=== PATIENT | male | born 1955 | race Two or more races ===

== ENCOUNTER 2020-11-20 09:20 | Inpatient (IN) | payer MEDICARE, OTHER ==
[2020-11-20] VITALS (21 sets, daily range): BP systolic 112–145; BP diastolic 47–67
[~2020-11-20] VITALS: Ht 167.6 cm; Wt 64.0 kg
--- NOTE | 2020-11-20 09:27 | NUR ---
BIB ra frm home c/o weakness and hyperglycemia. bs >400. On room air, breathing evenly and unlabored. Connected to the monitor and pulse ox. kept comfortable, will continue to monitor accordingly.
--- NOTE | 2020-11-20 09:28 | NUR ---
IV access initiated, blood drawned and sent to lab.
--- NOTE | 2020-11-20 09:28 | NUR ---
family contact number [phone]
[2020-11-20 09:40] LABS: EOSINOPHILS % (AUTO) 0.1 % (0.0-6.0); MONOCYTES # (AUTO) 0.4 /CMM (0.1-1.30)
[2020-11-20 09:45] LABS: BASOPHILS # (AUTO) 0.1 /CMM (0.0-0.2); BASOPHILS % (AUTO) 0.8 % (0.0-2.0)
[2020-11-20 09:57] LABS: HEMATOCRIT 40 % (39-51); HEMOGLOBIN 12.9 g/dL (13.5-17.5); LYMPHOCYTES # (AUTO) 0.6 /CMM (0.8-4.8); LYMPHOCYTES % (AUTO) 5.8 % (20.0-44.0); MEAN CORPUSCULAR HGB CONC 32 g/dl (31.0-36.0); MEAN CORPUSCULAR VOLUME 92 fL (80-96); MONOCYTES % (AUTO) 3.8 % (2.0-12.0); NEUTROPHILS # (AUTO) 9.3 /CMM (1.8-8.9); NEUTROPHILS % (AUTO) 89.5 % (43.0-81.0); PLATELET COUNT (AUTO) 270 /CMM (150-450); RED BLOOD CELL COUNT(AUTO) 4.38 MIL/uL (4.5-6.0); WHITE BLOOD COUNT (AUTO) 10.4 K/uL (4.3-11.0)
[2020-11-20 10:06] LABS: THYROID STIMULATING HORMONE 2.763 uIU/mL (0.358-3.74)
[2020-11-20 10:21] LABS: CALCIUM, SERUM 9.4 mg/dL (8.5-10.1); CHLORIDE 99 mmol/L (98-107); CREATININE 1.9 mg/dL (0.6-1.3); POTASSIUM 5.5 mmol/L (3.5-5.1); SODIUM SERUM 134 mmol/L (136-145); UREA NITROGEN, BLOOD 36 mg/dL (7-18)
[2020-11-20 10:30] LABS: CARBON DIOXIDE 7 mmol/L (21-32); GLUCOSE 491 mg/dL (74-106)
[2020-11-20 10:46] LABS: BILIRUBIN,TOTAL 0.5 mg/dL (0.2-1.0)
[2020-11-20 10:47] LABS: ALANINE AMINOTRANSFERASE 25 U/L (12-78); ALBUMIN 3.5 g/dL (3.4-5.0); ALKALINE PHOSPHATASE 112 U/L (46-116); ASPARTATE AMINOTRANSFERASE 13 U/L (15-37); B-TYPE NATRIURETIC PEPTIDE 429 PG/ML (0-125); BILIRUBIN,DIRECT 0.1 mg/dL (0.0-0.2); TOTAL PROTEIN, SERUM 8.4 g/dL (6.4-8.2)
[2020-11-20] MEDS ORDERED: AMLO10TA4 PO (10:59)
[2020-11-20] MEDS ORDERED: LOSA50TA39 PO (10:59)
[2020-11-20] MEDS ORDERED: GLIP5TAB13 PO (10:59)
[2020-11-20] MEDS ORDERED: METO25TA20 PO (10:59)
[2020-11-20] MEDS ORDERED: METF-440 PO (10:59)
[2020-11-20] MEDS ORDERED: LINA5TAB PO (10:59)
[2020-11-20] MEDS ORDERED: IV NS 0.9% 1,000 ML IV PRN ×2 (11:00→11:30)
[2020-11-20] MEDS ORDERED: INSULIN REGULAR, HUMAN 100 UNITS in IV NS 0.9% 100 ML IV PRN (11:00)
[2020-11-20 11:08] LABS: CALCIUM, SERUM 9.1 mg/dL (8.5-10.1); CREATININE 1.9 mg/dL (0.6-1.3); MAGNESIUM 2.6 mg/dL (1.8-2.4); PHOSPHORUS 4.6 mg/dL (2.5-4.9); POTASSIUM 5.9 mmol/L (3.5-5.1)
--- NOTE | 2020-11-20 11:22 | NUR ---
report given to Jc STUBBS for vera
[2020-11-20] MEDS ORDERED: MAG HYDROX/AL HYDROX/SIMETH 30 ML UDC PO PRN (11:30)
[2020-11-20] MEDS ORDERED: ACETAMINOPHEN 325 MG TABLET PO PRN (11:30)
[2020-11-20] MEDS ORDERED: MAGNESIUM HYDROXIDE 30 ML UDC PO PRN (11:30)
[2020-11-20] MEDS ORDERED: ONDANSETRON HCL/PF 4 MG/2 ML VIAL IVP PRN (11:30)
[2020-11-20] MEDS ORDERED: TEMAZEPAM 15 MG CAPSULE PO PRN (11:30)
[2020-11-20] MEDS ORDERED: MORPHINE SULFATE INJ 2 MG/ML DISP.SYRIN IV PRN (11:30)
[2020-11-20] MEDS ORDERED: Z GUARD REMEDY 2 OZ OINT TP PRN (11:30)
[2020-11-20] MEDS ORDERED: HYDROCODONE/APAP 5/325MG TABLET PO PRN (11:30)
[2020-11-20] MEDS ORDERED: INSULIN REGULAR, HUMAN 100 UNIT in IV NS 0.9% 99 ML IV PRN (11:30)
--- NOTE | 2020-11-20 12:10 | NUR ---
ADMITTING NOTES RECEIVED A PATIENT FROM [facility], A/O X4,ABLETO MAKE NEEDS KNOWN, ON RA SATING @100%, IV ACCESS ON RAC#18 WITH INSULIN DRIP @6.852 UNITS/HR AND NS RUNNING @ 125 ML/HR, PATENT AND INTACT, WILL CHECK FOR ADMITTING ORDERS. SKIN ISSUES NOTED ON BLE, WILL TAKE PICTURES AND FILE ON CHART, SAFETY MEASURES INITIATED, BED PLACED IN LOWEST LOCKED POSITION WITH SIDE RAILS UP X2, CALL LIGHT PLACED WITHIN EASY REACH, WILL CONTINUE TO MONITOR.
--- NOTE | 2020-11-20 12:18 | NUR ---
wheeled patient via gurney accompanied by RN and emt in no distress. RN assigned at bedside to assume care.
[2020-11-20] MEDS: PANTOPRAZOLE 40 MG VIAL IV SCH (13:04)
[2020-11-20 13:21] LABS: CALCIUM, SERUM 8.8 mg/dL (8.5-10.1); CREATININE 1.9 mg/dL (0.6-1.3); MAGNESIUM 2.5 mg/dL (1.8-2.4); PHOSPHORUS 3.3 mg/dL (2.5-4.9)
[2020-11-20] MEDS: BLOOD SUGAR DIAGNOSTIC 1 EACH STRIP IN SCH ×10 (14:05→23:06)
[2020-11-20 16:35] LABS: CALCIUM, SERUM 8.4 mg/dL (8.5-10.1); CREATININE 1.6 mg/dL (0.6-1.3); POTASSIUM 4.5 mmol/L (3.5-5.1)
[2020-11-20] MEDS: METOPROLOL TARTRATE 25 MG TABLET PO SCH (17:01)
[2020-11-20] MEDS: Potassium Chloride 40 MEQ in IV D5/0.45 NACL 1,000 ML IV PRN ×2 (17:04→22:37)
--- NOTE | 2020-11-20 18:41 | NUR ---
LOOM SETTER NOTES PATIENT IN BED RESTING COMFORTABLY IN MODERATE HIGH BACK REST, A/O X4, ON RA, TOLERATING WELL WITH NO SIGNS OF DISTRESS NOTED THROUGHOUT THE SHIFT, IV ACCESS ON RAC#18, ON INSULIN DRIP@ 1 UNIT/HR TITRATED PER PROTOCOL, D5 1/2 NS WITH 40 MEQ OF POTASSIUM RUNNING @ 200 ML/HR, PATENT AND INTACT. SAFETY MEASURES STILL IN PLACE, WILL ENDORSE TO MUSHROOM GROWER NURSE FOR CONTINUITY OF CARE.
--- NOTE | 2020-11-20 19:30 | NUR ---
RN NOTES RECEIVED PATIETN ASLEEP ON BED. BREATHING EVEN AND UNLABORED. PATIENT IS AOX4 ABLE TO MAKE KNOWN NEEDS. DENIES PAIN AT THIS TIME. SR ON MONITOR. ON ROOM AIR. PATIENT IS FULL CODE DIAGNOSED WITH DKA ON INSULIN DRIP TITRATED PROTOCOL ORDER. IV SITE ON RAC G 18 IRUNNING WITH INSULIN DRIP @ 1 U/H AND D5 1/2 W/ 40 MEQ KCL @ 200 ML/HR INTACT AND PATENT. KEPT PT CLEAN AND COMFORTABLE IN BED. INSTRUCTED TO USE KERMIT LIGHT FOR ASSISTANCE EVEN HE FEELS LIKE HE CAN DO THINGS ON HIS OWN. WILL CLOSELY MONITOR BS, BNP AND THE PATIENT STATUS.
--- NOTE | 2020-11-20 20:20 | NUR ---
RN NOTES PATIENT ATE DINNER 100% CONTINUE ON CLEAR LIQUID DIET. EDUCATE PATIENT REGARDING DIET ORDER. VERBALIZED UNDERSTANDING.
[2020-11-20] MEDS: HEPARIN SODIUM, PORCINE 5000 UNITS/1 ML VIAL SQ SCH (20:23)
[2020-11-20 22:27] LABS: BILIRUBIN,URINE SMALL (NEGATIVE); COLOR,URINE YELLOW (YELLOW); LEUKOCYTE ESTERASE ,URINE NEGATIVE (NEGATIVE); NITRITE, URINE NEGATIVE (NEGATIVE); PH,URINE 5.5 (5.0-8.0); PROTEIN,URINE 30 mg/dl (NEGATIVE); UGLUCOSE 500 MG/DL mg/dL (NEGATIVE); UROBILINOGEN,URINE 0.2 EU/dL (0.2)
[2020-11-20 22:29] LABS: CALCIUM, SERUM 7.8 mg/dL (8.5-10.1); CREATININE 1.6 mg/dL (0.6-1.3); POTASSIUM 4.2 mmol/L (3.5-5.1)
[2020-11-20 22:36] LABS: CREATININE, URINE 30.3 MG/DL (30.0-125.0); URINE TOTAL PROTEIN 63.3 mg/dL (0-11.9)
[2020-11-20 22:38] LABS: BACTERIA,URINE Few /HPF (None Seen); MUCUS,URINE Few /LPF (None Seen); SQUAMOUS EPITHELIAL CELL,UR Few /HPF (None Seen); URINE AMORPHOUS URATE Few /HPF (None Seen); YEAST,URINE Few /HPF (None Seen)
[2020-11-20 23:41] LABS: EOSINOPHIL,URINE None Seen
[2020-11-21] VITALS (33 sets, daily range): BP systolic 110–145; BP diastolic 30–78
[2020-11-21] MEDS: BLOOD SUGAR DIAGNOSTIC 1 EACH STRIP IN SCH ×12 (00:13→21:08)
[2020-11-21 02:14] LABS: CALCIUM, SERUM 7.7 mg/dL (8.5-10.1); CREATININE 1.5 mg/dL (0.6-1.3); POTASSIUM 4.2 mmol/L (3.5-5.1)
[2020-11-21] MEDS: Potassium Chloride 40 MEQ in IV D5/0.45 NACL 1,000 ML IV PRN (04:20)
[2020-11-21 06:32] LABS: BASOPHILS # (AUTO) 0.1 /CMM (0.0-0.2); BASOPHILS % (AUTO) 0.8 % (0.0-2.0); HEMATOCRIT 35 % (39-51); HEMOGLOBIN 11.6 g/dL (13.5-17.5); LYMPHOCYTES # (AUTO) 1.1 /CMM (0.8-4.8); LYMPHOCYTES % (AUTO) 13.7 % (20.0-44.0); MEAN CORPUSCULAR HGB CONC 33 g/dl (31.0-36.0); MEAN CORPUSCULAR VOLUME 88 fL (80-96); MONOCYTES # (AUTO) 0.5 /CMM (0.1-1.30); MONOCYTES % (AUTO) 6.7 % (2.0-12.0); NEUTROPHILS % (AUTO) 76.8 % (43.0-81.0); PLATELET COUNT (AUTO) 206 /CMM (150-450); RED BLOOD CELL COUNT(AUTO) 3.98 MIL/uL (4.5-6.0); WHITE BLOOD COUNT (AUTO) 7.8 K/uL (4.3-11.0)
--- NOTE | 2020-11-21 06:47 | NUR ---
RN NOTES PATIENT ASLEEP ON BED. NO APPARENT RESPIRATORY DISTRESS ON ROOM AIR. DENIES PAIN, NO HEADACHE OR CHEST PAIN. AFEBRILE. VSS. CONTINUE MONITOR BLOOD SUGAR DUE TO DKA. INSULIN DRIP CONTINUE TITRATED PER ALGORITHM #1 PROTOCOL. D5 1/2 +40 MEQ KCL @ 200 ML/HR ONGOING. IV SITE REMAINED INTACT AND PATENT. PATIENT IS VERY SENSITIVE TO PAIN. REQUESTED AND ONLY WANTED TO GET PRICK FOR BS CHECK ON BOTH MIDDLE THUMB. PATIENT URINATE WELL UNTO URINAL. WILL CONTINUE POC.
[2020-11-21 07:14] LABS: CALCIUM, SERUM 7.9 mg/dL (8.5-10.1); CREATININE 1.3 mg/dL (0.6-1.3); POTASSIUM 3.8 mmol/L (3.5-5.1)
--- NOTE | 2020-11-21 07:15 | NUR ---
ZIGZAG TUNNEL ELASTIC OPERATOR NOTES RECEIVED PATIENT RESTING COMFORTABLY IN MODERATE HIGH BACK REST. A/O X4, NO APPARENT RESPIRATORY DISTRESS NOTED AT THIS TIME,ON ROOM AIR. VSS. ON INSULIN DRIP RUNNING AT 2 UNITS/HR TITRATE PER ALGORITHM #1 PROTOCOL AND ON D5 1/2 +40 MEQ KCL @ 200 ML/HR ONGOING. IV SITE REMAINED INTACT AND PATENT. SAFETY MEASURES IN PLACE, BED IN LOWEST LOCKED POSITION WITH SIDE RAILS UP X2, CALL LIGHT WITHIN REACH, WILL CONTINUE TO MONITOR.
[2020-11-21 07:21] LABS: THYROID STIMULATING HORMONE 2.648 uIU/mL (0.358-3.74)
--- NOTE | 2020-11-21 07:38 | NUR ---
WOUND CARE CONSULT: PT REFUSED SKIN ASSESSMENT. REVIEWED CHART,NURSING DOCUMENTATION AND PHOTOS WHICH INDICATE RASH TO PERINEAL AND INNER THIGH AREAS, LOWER LEG DISCOLORATION WITH SCABS AND RT GREAT TOE BLISTER, ALL PRESENT ON ADMISSION. RECOMMEND DPM CONSULT. DR STAHL NOTIFIED. RECOMMENDATIONS MADE FOR SKIN PROTECTION. DISCUSSED WITH NURSING STAFF. MD IN AGREEMENT WITH PLAN OF CARE.
[2020-11-21] MEDS: AMLODIPINE BESYLATE 10 MG TABLET PO SCH (08:12)
[2020-11-21] MEDS: METOPROLOL TARTRATE 25 MG TABLET PO SCH ×2 (08:12→16:23)
[2020-11-21] MEDS: PANTOPRAZOLE 40 MG VIAL IV SCH (08:12)
[2020-11-21] MEDS: HEPARIN SODIUM, PORCINE 5000 UNITS/1 ML VIAL SQ SCH ×2 (08:13→21:10)
[2020-11-21] MEDS: CLOTRIMAZOLE 1% 15 GM TUBE TP SCH ×3 (08:39→16:25)
[2020-11-21] MEDS ORDERED: POTASSIUM PHOSPHATE MM 15 MMOL in IV NS 0.9% 250 ML IV SCH (09:00)
[2020-11-21] MEDS ORDERED: DEXTROSE 50%-WATER 50 ML DISP.SYRIN IV PRN ×2 (09:30→14:00)
[2020-11-21] MEDS ORDERED: *INSULIN REGULAR(HUMULIN R)HUM 100 UNIT/ML VIAL SQ PRN ×2 (09:30→14:00)
[2020-11-21] MEDS ORDERED: INSULIN REGULAR, HUMAN 100 UNIT/ML 3 ML VIAL SQ PRN (09:30)
[2020-11-21] MEDS ORDERED: Sodium Phosphate 15 MMOL in IV NS 0.9% 245 ML IV SCH (10:00)
--- NOTE | 2020-11-21 10:00 | NUR ---
PRINCIPAL SCIENTIST NOTES SEEN AND EXAMINED BY DR. GRIDER WITH ORDERS TO DISCONTINUED INSULIN DRIP AND TO CHANGED IV FLUIDS TO 1/2 NS WITH 40 MEQ OF POTASSIUM TO RUN FOR 200 ML/HR, AND TO CHANGED DIET ORDER TO [facility]. ORDERS MADE AND CARRIED OUT, WILL CONTINUE TO MONITOR.
[2020-11-21 10:54] LABS: CALCIUM, SERUM 7.6 mg/dL (8.5-10.1); CREATININE 1.3 mg/dL (0.6-1.3); POTASSIUM 3.8 mmol/L (3.5-5.1)
[2020-11-21] MEDS ORDERED: BLOOD SUGAR DIAGNOSTIC 1 EACH STRIP IN SCH (12:00)
--- NOTE | 2020-11-21 12:00 | NUR ---
[facility] NOTES CALLED PHARMACY TO F/U REGARDING 1/2 NS WITH 40 MEQ OF POTASSIUM, PER PHARMACIST THEY WILL TALK TO MD FIRST TO CLARIFY ORDERS.
--- NOTE | 2020-11-21 16:10 | NUR ---
COMPETITIVE INTELLIGENCE MANAGER NOTES PATIENT WAS TRANSFERRED TO [facility] MED[facility] STATUS, NO SIGNS OF DISTRESS NOTED, ALL BELONGINGS AND MEDICATIONS WITH PATIENT, BEDSIDE REPORT GIVEN TO EVELYNE SILVERMAN. VSS.
--- NOTE | 2020-11-21 16:16 | NUR ---
MS IRON WORKER NOTES RECEIVED TRANSFER FROM ICU. PATIENT MEDICALLY STABLE AT THIS TIME, ON ROOM AIR; BREATHING EVEN AND UNLABORED. NO COMPLAINS OF PAIN. SAFETY PRECAUTIONS IN PLACE; BED IN LOW POSITION AND LOCKED, RAILS UP X2, CALL LIGHT WITHIN REACH. WILL CONTINUE TO MONITOR PATIENT.
[2020-11-21] MEDS: POVIDONE-IODINE OINT 28.4 GM TUBE TP SCH (16:25)
[2020-11-21] MEDS: INSULIN REGULAR, HUMAN 100 UNIT/ML 3 ML VIAL SQ PRN ×2 (17:14→21:28)
--- NOTE | 2020-11-21 18:43 | NUR ---
MS RN CLOSING NOTES PATIENT IN BED RESTING, A/O X3. PATIENT ON ROOM AIR; BREATHING EVEN AND UNLABORED. NO COMPLAINS OF PAIN. RAC G #18 PRESENT AND INTACT INFUSING 1/2NS W 40MEQ POTASSIUM @200 MLS/HR. ALL NEEDS ATTENDED. SAFETY PRECAUTIONS IN PLACE; BED IN LOW POSITION AND LOCKED, RAILS UP X2, CALL LIGHT WITHIN REACH. WILL ENDORSE TO INVESTIGATIONS MANAGER NURSE.
--- NOTE | 2020-11-21 19:45 | NUR ---
MS/RN OPENING NOTE RECEIVED PATIENT RESTING IN BED. AWAKE, ALERT AND ORIENTED X 4. ABLE TO MAKE NEEDS KNOWN. NO COMPLAINTS OF PAIN AT THIS TIME. IV ACCESS TO RIGHT AC INTACT AND PATENT. CONTINUES ON IV NS WITH 40MEQ @ 200ML/HR. CALL CALL LIGHT WITHIN REACH. ASPIRATION, FALL AND SAFETY PRECAUTIONS MAINTAINED. WILL CONTINUE TO MONITOR.
--- NOTE | 2020-11-22 06:45 | NUR ---
MS/RN CLOSING NOTE PATIENT CURRENTLY RESTING IN BED. AWAKE, ALERT AND ORIENTED X 4. ABLE TO MAKE NEEDS KNOWN. NO COMPLAINTS OF PAIN AT THIS TIME. IV ACCESS TO RIGHT AC INTACT AND PATENT. CONTINUES ON IV NS WITH 40MEQ @ 200ML/HR. CALL CALL LIGHT WITHIN REACH. ASPIRATION, FALL AND SAFETY PRECAUTIONS MAINTAINED. WILL ENDORSE PLAN OF CARE TO ONCOMING SHIFT.
[2020-11-22] MEDS: BLOOD SUGAR DIAGNOSTIC 1 EACH STRIP IN SCH ×4 (06:52→22:04)
[2020-11-22] MEDS: INSULIN REGULAR, HUMAN 100 UNIT/ML 3 ML VIAL SQ PRN ×3 (06:54→17:42)
--- NOTE | 2020-11-22 07:41 | NUR ---
MS/RN OPENING NOTE RECEIVED PATIENT FROM MACHINE BUNCH MAKER NURSE. PATIENT SEEN LAYING DOWN IN HOSPITAL BED, A/O X3. NO ACUTE DISTRESS NOTED, PATIENT DEINES ANY PAIN AT THE MOMENT. PATIENT ON ROOM AIR TOLERATING WELL, NO SOB NOTED, BREATHING EVEN, NON LABORED. SAFETY MEASURES IN PLACE, BED LOCKED AND IN LOWEST POSITION, CALL LIGHT WITHIN REACH. WILL CONTINUE TO MONITOR AND ENSURE SAFETY.
[2020-11-22 08:00] VITALS: BP 128/62
[2020-11-22] MEDS: PANTOPRAZOLE 40 MG TABLET.DR PO SCH (08:13)
[2020-11-22] MEDS: AMLODIPINE BESYLATE 10 MG TABLET PO SCH (08:15)
[2020-11-22] MEDS: METOPROLOL TARTRATE 25 MG TABLET PO SCH ×2 (08:15→16:20)
[2020-11-22] MEDS: HEPARIN SODIUM, PORCINE 5000 UNITS/1 ML VIAL SQ SCH ×2 (08:23→21:43)
[2020-11-22] MEDS: POVIDONE-IODINE OINT 28.4 GM TUBE TP SCH ×2 (08:36→16:22)
[2020-11-22] MEDS: CLOTRIMAZOLE 1% 15 GM TUBE TP SCH ×4 (08:36→16:22)
[2020-11-22 16:00] VITALS: BP 126/68
--- NOTE | 2020-11-22 18:55 | NUR ---
MS/RN CLOSING NOTE PATIENT SEEN LAYING DOWN IN HOSPITAL BED, A/O X3. NO ACUTE DISTRESS NOTED, PATIENT DENIES ANY PAIN AT THE MOMENT. PATIENT ON ROOM AIR TOLERATING WELL, NO SOB NOTED, BREATHING EVEN, NON LABORED. SAFETY MEASURES IN PLACE, BED LOCKED AND IN LOWEST POSITION, CALL LIGHT WITHIN REACH. ALL NEEDS MET THROUGHOUT THE SHIFT. WILL ENDORSE TO CABLE MECHANIC NURSE.
[2020-11-22 20:00] VITALS: BP 136/62
--- NOTE | 2020-11-22 20:07 | NUR ---
MS/TELE/RN RECEIVED AWAKE, ALERT, ORIENTED, COMFORTABLE, NO C/O PAIN, NO DISTRESS NOTED CALL LIGHT IN REACH, FALL PRECAUTION PER PROTOCOL, NEEDS ATTENDED, WILL MONITOR.
[2020-11-22] MEDS ORDERED: INSULIN GLARGINE, 100 UNIT/ML CARTRIDGE SQ SCH (22:00)
--- NOTE | 2020-11-23 07:01 | NUR ---
MS/TELE/RN ACCU CHECK = 168, PATIENT REFUSED INSULIN, PER PATIENT IF HE GETS INSULIN HIS BLOOD SUGAR WILL DROP, EDUCATION ON BLOOD SUGAR AND INSULIN GIVEN, VERBALIZED UNDERSTANDING, BUT STILL REFUSED INSULIN. ALLL NEEDS ATTENDED AT THIS TIME, WILL CONTINUE TO MONITOR.
--- NOTE | 2020-11-23 07:34 | NUR ---
MS/RN OPENING NOTE RECEIVED PATIENT FROM DISTRICT MANAGER PRIMARY CARE SALES NURSE. PATIENT SEEN LAYING DOWN IN HOSPITAL BED, A/O X3. NO ACUTE DISTRESS NOTED, PATIENT DENIES ANY PAIN AT THE MOMENT. PATIENT ON ROOM AIR TOLERATING WELL, NO SOB NOTED, BREATHING EVEN, NON LABORED. SAFETY MEASURES IN PLACE, BED LOCKED AND IN LOWEST POSITION, CALL LIGHT WITHIN REACH. WILL CONTINUE TO MONITOR AND ENSURE SAFETY.
[2020-11-23] MEDS: BLOOD SUGAR DIAGNOSTIC 1 EACH STRIP IN SCH ×3 (07:56→17:19)
[2020-11-23] MEDS: PANTOPRAZOLE 40 MG TABLET.DR PO SCH (08:36)
[2020-11-23] MEDS: AMLODIPINE BESYLATE 10 MG TABLET PO SCH (08:37)
[2020-11-23] MEDS: METOPROLOL TARTRATE 25 MG TABLET PO SCH ×2 (08:38→16:08)
[2020-11-23] MEDS: HEPARIN SODIUM, PORCINE 5000 UNITS/1 ML VIAL SQ SCH (08:42)
[2020-11-23] MEDS: POVIDONE-IODINE OINT 28.4 GM TUBE TP SCH ×2 (09:00→16:15)
[2020-11-23] MEDS: CLOTRIMAZOLE 1% 15 GM TUBE TP SCH ×4 (09:00→16:16)
[2020-11-23 10:43] LABS: CALCIUM, SERUM 8.6 mg/dL (8.5-10.1); CREATININE 0.9 mg/dL (0.6-1.3); POTASSIUM 3.6 mmol/L (3.5-5.1)
[2020-11-23 10:54] LABS: BASOPHILS # (AUTO) 0.1 /CMM (0.0-0.2); BASOPHILS % (AUTO) 2.3 % (0.0-2.0); EOSINOPHILS % (AUTO) 2.5 % (0.0-6.0); HEMATOCRIT 36 % (39-51); LYMPHOCYTES # (AUTO) 1.6 /CMM (0.8-4.8); LYMPHOCYTES % (AUTO) 27.1 % (20.0-44.0); MEAN CORPUSCULAR HGB CONC 34 g/dl (31.0-36.0); MEAN CORPUSCULAR VOLUME 87 fL (80-96); MONOCYTES # (AUTO) 0.6 /CMM (0.1-1.30); NEUTROPHILS # (AUTO) 3.4 /CMM (1.8-8.9); NEUTROPHILS % (AUTO) 58.1 % (43.0-81.0); PLATELET COUNT (AUTO) 163 /CMM (150-450); WHITE BLOOD COUNT (AUTO) 5.9 K/uL (4.3-11.0)
[2020-11-23] MEDS: INSULIN REGULAR, HUMAN 100 UNIT/ML 3 ML VIAL SQ PRN ×2 (12:05→17:29)
[2020-11-23 16:08] VITALS: BP 119/59
--- NOTE | 2020-11-23 18:00 | NUR ---
MS/SIFTING OPERATOR NOTE PATIENT IS TO BE DISCHARGED TO [facility] IN MEDICALLY STABLE CONDITION. ALL PERSONAL BELONGINGS ACCOUNTED FOR AND SIGNED OFF FOR IN BELONGINGS LIST. EDUCATED PATIENT ON MEDICATIONS PRESCRIBED FROM DR. GRIDER. INSTRUCTED PATIENT ON DISCHARGE/EXIT CARE. CALL JERRELL Rodriguez THE RN APPEALS ANALYST AT [facility] TO GIVE REPORT. PATIENT IS TO BE TRANSFERRED TO ROOM 38A. COPY OF EXIT CARE/ DISCHARGE PAPER WORK TO BE HANDED OFF TO [employer] UPON ARRIVAL.
--- NOTE | 2020-11-23 18:59 | NUR ---
MS/RN CLOSING NOTE PATIENT SEEN LAYING DOWN IN HOSPITAL BED, A/O X3. NO ACUTE DISTRESS NOTED, PATIENT DENIES ANY PAIN AT THE MOMENT. PATIENT ON ROOM AIR TOLERATING WELL, NO SOB NOTED, BREATHING EVEN, NON LABORED. SAFETY MEASURES IN PLACE, BED LOCKED AND IN LOWEST POSITION, CALL LIGHT WITHIN REACH. ALL NEEDS MET THROUGHOUT THE SHIFT. WILL ENDORSE TO STEEL SPAR OPERATOR NURSE.
--- NOTE | 2020-11-23 19:25 | NUR ---
MS/RN DISCHARGED PATIENT WAS DISCHARGED IN MEDICALLY STABLE CONDITION, NAME BAND REMOVED AND APPLIED PRESSURE DRESSING.
[2020-11-23 19:33] VITALS: BP 149/70
== END 2020-11-23 19:42 | DRG 637 ==
LOC: ER 09:41 → ICU 12:02 → MED 11-21 16:00
PROVIDERS: ADMIT Nurse Practitioner Acute Care; ATTEND Internal Medicine
DX: E11.10 Type 2 diabetes mellitus with ketoacidosis without coma (principal); N17.0 Acute kidney failure with tubular necrosis; E87.1 Hypo-osmolality and hyponatremia; M84.477A Pathological fracture, right toe(s), initial encounter for fracture; I10 Essential (primary) hypertension; E87.5 Hyperkalemia; F17.200 Nicotine dependence, unspecified, uncomplicated; Z20.822 Contact with and (suspected) exposure to COVID-19; Z79.84 Long term (current) use of oral hypoglycemic drugs; Z79.899 Other long term (current) drug therapy; E86.1 Hypovolemia; E11.65 Type 2 diabetes mellitus with hyperglycemia; E11.621 Type 2 diabetes mellitus with foot ulcer; L97.519 Non-pressure chronic ulcer of other part of right foot with unspecified severity; B35.1 Tinea unguium; Z83.3 Family history of diabetes mellitus; T44.5X5A Adverse effect of predominantly beta-adrenoreceptor agonists, initial encounter; Y92.9 Unspecified place or not applicable
CPT/HCPCS: 36415; 71045-TC; 73620-TC; 80048-TC; 80061-TC; 80076-TC; 81001; 82570-TC; 82962-TC; 83690-TC; 83735-TC; 83880; 84100-TC; 84155-TC; 84300-TC; 84439-TC; 84443-TC; 84484-TC; 85025-TC; 87081-TC; 87086-TC; A9563; C9113; G0378; J1644; J1815; J3480; J3490; J7030; J7050